=== PATIENT | male | born 1970 | race Caucasian/White ===

== ENCOUNTER → 2019-10-27 | Outpatient (CLI) | payer MEDICARE, MEDICAID ==
[~2019-10-27] MED LIST: 00186-0370-20 IH; ACTOS 15MG TAB15 MG PO; ACTOS30 MG PO; ALBUTEROL0.09 MG/A1 IH; ALBUTEROL0.83 MG/ML IH; ASPIRIN 81M81 MG/TA2 PO; ASPIRIN E.C. 8181 MG PO; BUSPAR10 MG PO; CATAPRES 0.1MG0.1 MG PO; CATAPRES0.2 MG PO; CELEXA10 MG PO; CELEXA40 MG PO; CLINDAMYCIN150 MG PO; COZAAR100 MG PO; CRESTOR40 MG PO; CYMBALTA 60MG60 MG PO; DIOVAN 160MG160 MG PO; DIOVAN 80MG80 MG PO; DOXYCYCLINE 10100 MG PO; FIORICET 325 MG1 TA1 PO; FLOVENT 110MCG7.9 GM IH; FORTAMET1000 MG PO; GABAPENTIN300 M1 PO; GEODON60 MG PO; GLUCOPHAGE500 MG PO; HCTZ 25MG TAB25 MG PO; HUMALOG100 U/ML; HUMALOG100 U/ML SC; HUMALOG100 U/ML SQ; HYDROXYZINE PAM25 MG PO; IMODIUM 2MG CAPS2 MG PO; KLONOPIN 0.5MG0.5 MG PO; LANTUS100 U/ML; LANTUS100 U/ML SQ; LEVAQUIN 5500 MG/TA1 PO; LISINOPRIL10 MG PO; LORTAB 5/500 501 TAB PO; MELOXICAM; MOBIC 7.5MG7.5 MG PO; MOTRIN 200200 MG/TAB PO; NEURONTIN100 MG/CAP PO; NEURONTIN300 MG/CAP PO; NEURONTIN600 MG/TAB PO; NICODERM C21 MG/PATC TOP; NORCO 325 MG-51 TAB PO; NORCO 325 MG-7.1 TAB PO; NORVASC 5MG5 MG/TAB PO; NOVOLOG 100U100 U/M1 SQ; PEPCID 20MG TAB20 MG PO; PERCOCET 325 MG1 TA2 PO; PHENERGAN 25 TA25 MG PO; PHENERGAN25 MG RC; PRAVACHOL 40MG40 MG PO; PREDNISONE10 MG PO; PRINIVIL20 MG PO; PRISTIQ 50 MG T50 MG PO; PROAIR HFA0.09 MG/AC IH; REGLAN 10MG10 MG/TAB PO; RT SPIRIVA18 MCG IH; SAPHRIS2.5 MG SL; SMZ/TMPDS PO; STIOLTO RESPIMAT4 GM IH; SYNTHROID0.05 MG/TA PO; SYNTHROID0.112 MG/T PO; SYNTHROID0.175 MG PO; TIROSINT137 MC1 PO; UNKNOWN ANTIBIOTIC; VENTOLIN0.09 MG IH; VICTOZA6 MG/ML SQ; WELLBUTRIN PO; WELLBUTRIN XL150 MG PO; ZESTRIL 20MG TA20 MG PO; ZIPRASIDONE; ZOFRAN 4MG T4 MG/TAB PO; ZOFRAN ODT4 MG PO; [UNRECOGNIZED DRUG - REMARK]; blood pressure
== END ==
LOC: COL.LAB 08:00 → EDSTATUS 11-01 14:00 → SDCO 11-01 14:00
DX: K40.90 Unilateral inguinal hernia, without obstruction or gangrene, not specified as recurrent (principal); Z20.828 Contact with and (suspected) exposure to other viral communicable diseases

== ENCOUNTER 2019-11-02 09:57 | Inpatient (IN) | payer MEDICARE, MEDICAID ==
[~2019-11-02] VITALS: Ht 182.9 cm; Wt 77.9 kg
[2019-11-02] VITALS (145 sets, daily range): BP systolic 98–109; BP diastolic 59–62; PULSE 102–111; TEMP 97.2–98.2; O2SAT 84–99
[~2019-11-02 09:57] MED LIST changes: -ALBUTEROL0.83 MG/ML IH; -ASPIRIN E.C. 8181 MG PO; -CRESTOR40 MG PO; -NEURONTIN300 MG/CAP PO; -NEURONTIN600 MG/TAB PO; -NORVASC 5MG5 MG/TAB PO; -PRISTIQ 50 MG T50 MG PO; -SAPHRIS2.5 MG SL; -STIOLTO RESPIMAT4 GM IH; -SYNTHROID0.175 MG PO
[2019-11-02 11:01] LABS: COLLECTION METHOD IN
[2019-11-02 11:04] LABS: HEMATOCRIT 47.1 % (42.0-52.0); HEMOGLOBIN 13.3 g/dl (13.5-18.0); MEAN CELL VOLUME 109 fl (80.0-100.0); MEAN CORPUSCULAR HEMOGLOBIN 31 pg (27.0-31.0); MEAN CORPUSCULAR HGB CONC 28 g/dl (33.0-37.0); MEAN PLATELET VOLUME 13.6 fl (7.4-10.4); PLATELET COUNT 220 K/mm3 (130-400); RED BLOOD COUNT 4.32 M/mm3 (4.20-5.60)
[2019-11-02 11:15] LABS: ALANINE AMINOTRANSFERASE 45 U/L (4-49); ALBUMIN 3.8 gm/dL (3.5-5.0); ALKALINE PHOSPHATASE 148 U/L (50-136); ANION GAP 34 mmol/L (7-16); AST,SGOT 56 U/L (15-37); BILIRUBIN,TOTAL 0.5 mg/dL (0.0-1.0); BLOOD UREA NITROGEN 79 mg/dL (9-20); CALCIUM 7.9 mg/dL (8.4-10.2); CREATINE KINASE 650 U/L (55-170); CREATININE, serum 3.78 (0.66-1.25); POTASSIUM 5.3 mmol/L (3.4-5.0); SODIUM 127 mmol/L (137-145); TOTAL PROTEIN 5.7 gm/dL (6.4-8.2)
[2019-11-02 11:16] LABS: ACETONE,SERUM SMALL
[2019-11-02 11:20] LABS: PH 5 (5-8); SQUAMOUS EPITHELIAL 0-2 /hpf; URINE APPEARANCE Clear; URINE BACTERIA None Seen /hpf; URINE BILIRUBIN Negative (NEGATIVE); URINE BLOOD 2+ (NEGATIVE); URINE COLOR Straw; URINE GLUCOSE 3+ (NEGATIVE); URINE KETONE Trace (NEGATIVE); URINE LEUKOCYTE ESTERASE Negative (NEGATIVE); URINE NITRATE Negative (NEGATIVE); URINE PROTEIN(semi-quant) Negative (NEGATIVE); URINE RBC 0-2 /hpf; URINE UROBILINOGEN Negative (NEGATIVE)
[2019-11-02 11:45] LABS: CARBON DIOXIDE 7 mmol/L (22-30); CHLORIDE 86 mmol/L (98-107); SALICYLATE < 1.0 mg/dL
[2019-11-02 11:52] LABS: BAND 1 % (0-10); LYMPHOCYTE 7 % (20.0-51.0); NEUTROPHILS 85 % (42.0-75.2)
[2019-11-02 11:55] LABS: TOXIC GRANULATION PRESENT
[2019-11-02 11:56] LABS: BURR CELLS 1+; POIKILOCYTOSIS 1+
[2019-11-02 11:57] LABS: PLATELET ESTIMATE NORMAL (NORMAL)
[2019-11-02 12:03] LABS: GLUCOSE 1598 mg/dL (74-106)
[2019-11-02 12:07] LABS: C-REACTIVE PROTEIN 5.4 mg/dL (0.0-0.9)
[2019-11-02 13:43] LABS: TRICYCLIC ANTIDEPRESS URINE NEGATIVE
[2019-11-02 13:50] LABS: CALCIUM 7.7 mg/dL (8.4-10.2); CREATININE, serum 3.71 (0.66-1.25); POTASSIUM 4.9 mmol/L (3.4-5.0)
--- NOTE | 2019-11-02 14:15 | NUR ---
Admit to ICU room 2 via stretcher acc by ED staff. Lethargic. Groans with transfer to bed. Connected to continuous court monitor. Glucose above reference range for bedside glucometer. Insulin infusing at 8 units/hr.
--- NOTE | 2019-11-02 16:00 | NUR ---
Insulin at 10 units per Pothuru verbal order
[2019-11-02 16:02] LABS: MAGNESIUM 3.6 mg/dL (1.6-2.3)
[2019-11-02 16:32] LABS: CALCIUM 7.8 mg/dL (8.4-10.2); CREATININE, serum 3.79 (0.66-1.25)
--- NOTE | 2019-11-02 17:00 | NUR ---
Bed alarming. Patient attempting to get out of bed without assistance. Pt's PICC disconnected from IV tubing. Cleansed with chlorhexadine. Reoriented patient to situation. Bed placed in low position. Alarm sensor sensitivity increased. Warm blanket provided.
--- NOTE | 2019-11-02 17:10 | NUR ---
Vancomycin Initial Dosing Pharmacy Note Ordering provider: Salome Montilla MD Indication/duration: EMPIRIC Relevant comorbidities: DM LABS: WBC 25.5, SCr 3.7, CrCl ~25 Recommendation: vancomycin 15 mg/kg Loading dose: 1.5 grams Maintenance dose: 1.25 grams every 24 hours. Trough goal: 15-20 ug/mL. trough 11/04 @ 1630
[2019-11-02 18:48] LABS: CALCIUM 7.3 mg/dL (8.4-10.2); CREATININE, serum 3.4 (0.66-1.25); POTASSIUM 3.8 mmol/L (3.4-5.0)
[2019-11-02 20:09] LABS: CALCIUM 7.6 mg/dL (8.4-10.2); CREATININE, serum 3.42 (0.66-1.25); POTASSIUM 3.8 mmol/L (3.4-5.0)
--- NOTE | 2019-11-02 23:04 | NUR ---
TIMES ON DRIP TITRATION MAY BE OFF DUE TO BG LEVELS BEING RAN BY LAB BECAUSE THEY ARE TOO HIGH TO GET ACCURATE READINGS ON GLUCOMETER ON UNIT. LAB LEVELS DONT RESULT UNTIL ABOUT 30-40 MINUTES AFTER DRAWN.
[2019-11-03] VITALS (35 sets, daily range): BP systolic 106–145; BP diastolic 66–80; PULSE 106–115; TEMP 98.1–99.4; O2SAT 93–97
[2019-11-03 00:16] LABS: CALCIUM 7.7 mg/dL (8.4-10.2); CREATININE, serum 2.82 (0.66-1.25); POTASSIUM 4.1 mmol/L (3.4-5.0)
[2019-11-03 02:30] LABS: CALCIUM 7.6 mg/dL (8.4-10.2); CREATININE, serum 2.66 (0.66-1.25); POTASSIUM 4.1 mmol/L (3.4-5.0)
[2019-11-03 04:19] LABS: HEMATOCRIT 37.4 % (42.0-52.0); HEMOGLOBIN 12.7 g/dl (13.5-18.0); MEAN CORPUSCULAR HEMOGLOBIN 31 pg (27.0-31.0); MEAN CORPUSCULAR HGB CONC 34 g/dl (33.0-37.0); MEAN PLATELET VOLUME 12.6 fl (7.4-10.4); PLATELET COUNT 170 K/mm3 (130-400); RED BLOOD COUNT 4.17 M/mm3 (4.20-5.60)
[2019-11-03 04:31] LABS: MEAN CELL VOLUME 90 fl (80.0-100.0)
[2019-11-03 04:35] LABS: CALCIUM 7.7 mg/dL (8.4-10.2); CREATININE, serum 2.48 (0.66-1.25)
[2019-11-03 05:14] LABS: ANISOCYTOSIS 1+; BAND 16 % (0-10); LYMPHOCYTE 6 % (20.0-51.0); METAMYELOCYTE 1 % (0-0); NEUTROPHILS 71 % (42.0-75.2); PLATELET ESTIMATE NORMAL (NORMAL)
[2019-11-03 05:15] LABS: SPHEROCYTE 1+
[2019-11-03 07:09] LABS: CALCIUM 7.7 mg/dL (8.4-10.2); CREATININE, serum 2.26 (0.66-1.25); POTASSIUM 3.9 mmol/L (3.4-5.0)
--- NOTE | 2019-11-03 08:00 | NUR ---
Shift assessment complete at this time. Unable to review plan of care at bedside with patient r/t altered mental status preventing understanding. Pt demonstrates confusion and repeatedly attempts to leave bed and is unable to vocalize a need to nursing staff when attempting to repeatedly leave bed. Vitals stable at this time. Pt denies pain when prompted. Bed in low position, call light within reach, will continue to monitor.
[2019-11-03 08:26] LABS: CALCIUM 7.6 mg/dL (8.4-10.2); CREATININE, serum 2.22 (0.66-1.25); POTASSIUM 3.7 mmol/L (3.4-5.0)
[2019-11-03 10:38] LABS: CALCIUM 7.6 mg/dL (8.4-10.2); CREATININE, serum 2.09 (0.66-1.25)
--- NOTE | 2019-11-03 10:53 | NUR ---
SW's attended clinical rounds. The patient has AMS and is unable to answer any questions. SW then contacted the patient's mother, Pippa Zavala (ph#[phone]), to discuss discharge plan. The patient lives in a trailer park in [place] with his two children. They are 8 & 9. Pippa reports that the children are staying with her while he is here. Pippa lives in the same trailer park as the patient. Pippa reports that the patient is independent with ADLs and does not have any DME. His PCP is Dr. Hoa Curiel and he receives his medications at [facility]. Pippa reports that the patient normally does not have any difficulties obtaining his meds, but if he does, she helps pay for them. Pippa reports that the patient does not have advanced directives completed. Pippa states that the patient is not and only has his two children. She confirms that she is his next of kin. ANGELITA updated the patient's RN on the above information. SW to continue to follow.
--- NOTE | 2019-11-03 12:00 | NUR ---
Pt resting in bed at this time. More restful after administration of PRN morphine and ativan. Pt has recently been able to verbalize that he is having pelvis/lower abdomen pain. Vitals stable at this time. Bed in low position, call light within reach, will continue to monitor.
[2019-11-03 14:26] LABS: CALCIUM 7.5 mg/dL (8.4-10.2); CREATININE, serum 1.87 (0.66-1.25); POTASSIUM 4.9 mmol/L (3.4-5.0)
[2019-11-03 15:02] LABS: CSF APPEARANCE CLEAR; CSF COLOR COLORLESS; CSF RBC 1 /mm3 (0-0)
[2019-11-03 15:21] LABS: TOTAL PROTEIN,CSF 52 mg/dL (15-45)
[2019-11-03 15:35] LABS: CSF MONONUCLEAR 100 % (70-100); CSF POLYMORPHONUCLEAR 0 % (0-6)
--- NOTE | 2019-11-03 17:15 | NUR ---
Barrie Arreola RN et Dr. Montilla noted a loud noise come from Pt room at 1655 while sitting outside Pt room. Pt was found to have fallen on the floor forwards from the right corner of the bed. Bed was in low position, call light was within reach, yellow fall gown was on Pt, yellow fall socks on Pt, et fall risk band/door label in place. Bed rails were raised x3 prior to fall Bed alarm was noted to be armed prior to fall by Fili Marroquin RN, et Dr. Montilla. However, no alarm had sounded when patient left the bed alarm zone. Pt reported no injuries and denies new pain from the fall. Pt only reports pain from abdomen/pelvis that has been continuous throughout admission prior to fall. 3 cm abrasion noted on middle forehead with no bleeding or ecchymosis. Curriculum Writer notified.
[2019-11-03 18:30] LABS: INR 1.1 (0.8-3.0); PROTHROMBIN TIME 12.7 SECONDS (9.7-12.8)
[2019-11-03 20:34] LABS: BASO % 0.1 % (0.0-2.0); GRAN # 15.5 (1.4-6.5); GRAN % 87.2 % (42.2-75.2); HEMOGLOBIN 12.3 g/dl (13.5-18.0); LYMPH # 0.9 (1.2-3.4); LYMPH % 4.9 % (20.0-51.0); MEAN CELL VOLUME 92 fl (80.0-100.0); MEAN CORPUSCULAR HEMOGLOBIN 31 pg (27.0-31.0); MEAN CORPUSCULAR HGB CONC 33 g/dl (33.0-37.0); MEAN PLATELET VOLUME 12.4 fl (7.4-10.4); MONO # 1.2 (0.1-0.6); PLATELET COUNT 134 K/mm3 (130-400); RED BLOOD COUNT 4.02 M/mm3 (4.20-5.60); REDCELL DISTRIBUTION WIDTH-CV 14.6 % (11.5-14.5)
[2019-11-03 20:49] LABS: ALBUMIN 3.2 gm/dL (3.5-5.0); BILIRUBIN,TOTAL 0.4 mg/dL (0.0-1.0); CALCIUM 7.8 mg/dL (8.4-10.2); CREATININE, serum 1.7 (0.66-1.25); POTASSIUM 4.4 mmol/L (3.4-5.0); TOTAL PROTEIN 5.5 gm/dL (6.4-8.2)
[2019-11-03] MEDS ORDERED: SYNTHROID0.175 MG PO (20:49)
[2019-11-03] MEDS ORDERED: COZAAR100 MG PO (20:50)
[2019-11-03] MEDS ORDERED: CRESTOR40 MG PO (20:51)
[2019-11-03] MEDS ORDERED: STIOLTO RESPIMAT4 GM IH (20:57)
[2019-11-03] MEDS ORDERED: NEURONTIN600 MG/TAB PO (20:59)
[2019-11-03] MEDS ORDERED: ALBUTEROL0.83 MG/ML IH (21:01)
[2019-11-03] MEDS ORDERED: SAPHRIS2.5 MG SL (21:02)
[2019-11-03 21:03] LABS: TROPONIN-I 0.233 ng/mL (0.000-0.035)
[2019-11-03] MEDS ORDERED: PRISTIQ 50 MG T50 MG PO (21:03)
[2019-11-03] MEDS ORDERED: CATAPRES0.2 MG PO (21:03)
[2019-11-03] MEDS ORDERED: BUSPAR10 MG PO (21:04)
[2019-11-03] MEDS ORDERED: VENTOLIN0.09 MG IH (21:05)
[2019-11-03] MEDS ORDERED: ZOFRAN ODT4 MG PO (21:06)
[2019-11-03] MEDS ORDERED: ASPIRIN E.C. 8181 MG PO (21:07)
[2019-11-04] VITALS (13 sets, daily range): BP systolic 132–170; BP diastolic 81–99; PULSE 72–106; TEMP 98–99; O2SAT 95–96
[2019-11-04 05:53] LABS: BASO % 0.2 % (0.0-2.0); EOS % 0.1 % (0-4.0); GRAN # 10.4 (1.4-6.5); GRAN % 85.3 % (42.2-75.2); HEMATOCRIT 38.3 % (42.0-52.0); HEMOGLOBIN 12.6 g/dl (13.5-18.0); LYMPH # 0.9 (1.2-3.4); LYMPH % 7.7 % (20.0-51.0); MEAN CELL VOLUME 93 fl (80.0-100.0); MEAN CORPUSCULAR HEMOGLOBIN 31 pg (27.0-31.0); MEAN CORPUSCULAR HGB CONC 33 g/dl (33.0-37.0); MONO # 0.7 (0.1-0.6); MONO % 6.1 % (1.7-9.3); PLATELET COUNT 119 K/mm3 (130-400)
[2019-11-04 06:03] LABS: CREATININE, serum 1.41 (0.66-1.25); POTASSIUM 4.2 mmol/L (3.4-5.0)
--- NOTE | 2019-11-04 08:20 | NUR ---
Dr Ramsey in to see pt at this time. No new orders. Will continue to follow.
--- NOTE | 2019-11-04 08:59 | NUR ---
Vancomycin Follow-up Pharmacy Note Current regimen: vancomycin 1.25g q24 h Vancomycin trough: not yet obtained. SCr improved from 3.7 to 1.4 Adjustments: increase frequency to vancomycin 1.25g q12h.
--- NOTE | 2019-11-04 10:16 | NUR ---
Dr Blandon in to see pt at this time.
[2019-11-04 18:38] LABS: CALCIUM 8.2 mg/dL (8.4-10.2); CREATININE, serum 1.12 (0.66-1.25); POTASSIUM 3.9 mmol/L (3.4-5.0)
--- NOTE | 2019-11-04 19:04 | NUR ---
Called placed to Dr Gooden with most recent lab results. No answer, message left.
--- NOTE | 2019-11-04 19:15 | NUR ---
Report given to Jadyn RN and care transfered.
--- NOTE | 2019-11-04 20:10 | NUR ---
Patient assessed at this time. Has been drowsy, but woke up when needing to have a BM. Patient has had 3 small, watery BMs since coming onto shift at 1900. Incontinent cares provided. Patient able to answer yes and no questions. Denies having any pain or discomfort. Peripheral INT to left AC flushed. Site is without redness, warmth, swelling, and pain. Double lumen PICC to RUE. Fluids and ABXs running per orders. Dressing to area is CDI. Site is without redness, warmth, swelling, and pain. Denies having SOB and dypsnea. Currently on oxygen at 3 L/min via oxymask. 96%. LS CTA. Respirations even and unlabored. HRR. Telemetry: NS. Capillary refill less than 3 seconds. Non-tenting skin turgor. BSAx4. Abdomen soft and non-tender. Indwelling lynn catheter with cloudy malachi urine via dependent drainage. Catheter care provided. Securement device in place. No edema. Voices no questions, needs, or concerns at this time. Abrasion to forehead, and to BLE. Areas open to air, no drainage. Patient has red scratch to left buttock. Resting in bed with call light within reach. High fall risk precautions in place. Bed alarm is on.
[2019-11-05] VITALS (11 sets, daily range): BP systolic 120–163; BP diastolic 86–90; PULSE 73–92; TEMP 97.7–98.6; O2SAT 96–97
--- NOTE | 2019-11-05 04:15 | NUR ---
Patient has gotten onto bedpan multpile times throughout the night. Has had small amounts of liquid stool each time. Denies upset stomach or nausea. Patient's indwelling lynn catheter currently has blood tinged urine via dependent drainage. Catheter care provided. No blood at insertion site. Denies pain to area. Patient is talking and answering more questions at this time, compared to the beginning of the shift. Patient had asked how long he has been here and why was he at the hospital, as patient was not able to remember when or why he came to hospital. Updated patient. Voices no questions, needs, or concerns at this time. Resting in bed with call light within reach. High fall risk precautions remain in place at this time.
[2019-11-05 05:54] LABS: BASO % 0.1 % (0.0-2.0); EOS % 0.6 % (0-4.0); GRAN # 5.5 (1.4-6.5); GRAN % 75.6 % (42.2-75.2); HEMOGLOBIN 11.2 g/dl (13.5-18.0); LYMPH # 1.3 (1.2-3.4); LYMPH % 17.2 % (20.0-51.0); MEAN CELL VOLUME 94 fl (80.0-100.0); MEAN CORPUSCULAR HEMOGLOBIN 30 pg (27.0-31.0); MEAN CORPUSCULAR HGB CONC 33 g/dl (33.0-37.0); MEAN PLATELET VOLUME 11.7 fl (7.4-10.4); MONO # 0.4 (0.1-0.6); MONO % 6.1 % (1.7-9.3); PLATELET COUNT 86 K/mm3 (130-400); RED BLOOD COUNT 3.68 M/mm3 (4.20-5.60); REDCELL DISTRIBUTION WIDTH-CV 14.5 % (11.5-14.5)
[2019-11-05 05:59] LABS: HEMATOCRIT 34.4 % (42.0-52.0)
[2019-11-05 06:05] LABS: CALCIUM 7.7 mg/dL (8.4-10.2); CREATININE, serum 0.92 (0.66-1.25); POTASSIUM 3.1 mmol/L (3.4-5.0)
--- NOTE | 2019-11-05 07:20 | NUR ---
Report received from Jadyn DUMAS and care resumed.
--- NOTE | 2019-11-05 08:40 | NUR ---
Assessment complete. Pt much more awake today and able to answer orientation questions and carry on small conversations. Has called multiple times for bedpan. Pt having small loose stools. No other concerns at this time, will continue to follow.
--- NOTE | 2019-11-05 08:40 | NUR ---
Dr Ramsey in to see pt at this time. Will plan to do hernia repair once more stable. Will continue to follow.
--- NOTE | 2019-11-05 09:50 | NUR ---
Dr Montilla in to see pt at this time. Updated on improved mental status but still having frequent small loose stools. Will plan to transfer to floor.
--- NOTE | 2019-11-05 10:30 | NUR ---
Elissa with nephrology in to see pt at this time.
--- NOTE | 2019-11-05 11:25 | NUR ---
Attempted to call report to Shanta DUMAS on medical floor. Stated will call back.
--- NOTE | 2019-11-05 12:37 | NUR ---
Attempted to call report to Shanta DUMAS on medical floor. Stated will call back.
--- NOTE | 2019-11-05 13:05 | NUR ---
Report called to Shanta DUMAS on medical floor. Pt taken by bed with chart and belongings to room 309. Call light within reach and bed alarm on.
--- NOTE | 2019-11-05 14:07 | NUR ---
1320: PATIENT ARRIVED TO FROM 309 FROM ICU 2. ARRIVED VIA BED ACCOMPANIED BY ICU NURSE. UPON ARRIVAL A/O X 4. DENIES C/O PAIN OR DISCOMFORT. VALENCIA CATHETER IN PLACE. DOUBLE LUMEN PICC TO RIGHT UPPER ARM WNL. SEE EMAR FOR MEDICATIONS INFUSING ORDERED. 2 EPPISODES OF LOOSE WATERY MUCOUSY STOOL. CALL TO DR Morris ORDERS RECEIVED FOR TO OBTAIN GI PANEL AND CDIFF. SPECIMEN COLLECTED AND SENT TO LAB.
[2019-11-05 15:11] LABS: CLOSTRIDIUM DIFF A/B NEG; CLOSTRIDIUM DIFF A/B INTERP No C.diff present
--- NOTE | 2019-11-05 21:35 | NUR ---
Patient assessed at this time. Alert and oriented x 4, and able to make needs known. Denies having pain and discomfort at this time, except for some nausea. Given PRN Zofran as requested. Peripheral INT to left AC. Double lumen PICC to RUE. Fluids running per orders. Denies having SOB and dyspnea. On room air. LS CTA. Respirations even and unlabored. HRR. Capillary refill less than 3 seconds. Non-tenting skin turgor. BSAx4. Abdomen soft and non-tender. No edema. Indwelling lynn catheter taken out. Able to urinate 75 mls so far since removing catheter around 2100. Abrasion to forehead open to air. High fall risk precautions in place, with bed alarm on. Voices no questions, needs, or concerns at this time. Resting in bed with call light within reach.
[2019-11-06 04:04] VITALS: BP 154/88; PULSE 73; TEMP 98.4
--- NOTE | 2019-11-06 05:48 | NUR ---
Patient has been using urinal and bedside commode this shift with one assist. Has been calling for assistance about half of the time. High fall risk precautions remain in place due to history of falls. Voices no questions, needs, or concerns at this time. Resting in bed with call light within reach.
[2019-11-06 07:52] LABS: BASO % 0.2 % (0.0-2.0); EOS # 0.1 (0.0-0.7); EOS % 1.8 % (0-4.0); GRAN # 3.9 (1.4-6.5); GRAN % 69.6 % (42.2-75.2); HEMOGLOBIN 11.7 g/dl (13.5-18.0); LYMPH # 1.2 (1.2-3.4); LYMPH % 20.9 % (20.0-51.0); MEAN CELL VOLUME 94 fl (80.0-100.0); MEAN CORPUSCULAR HEMOGLOBIN 30 pg (27.0-31.0); MEAN CORPUSCULAR HGB CONC 32 g/dl (33.0-37.0); MEAN PLATELET VOLUME 11.8 fl (7.4-10.4); MONO # 0.4 (0.1-0.6); MONO % 7.3 % (1.7-9.3); PLATELET COUNT 84 K/mm3 (130-400); RED BLOOD COUNT 3.85 M/mm3 (4.20-5.60); REDCELL DISTRIBUTION WIDTH-CV 13.7 % (11.5-14.5)
[2019-11-06 08:02] LABS: CALCIUM 8.1 mg/dL (8.4-10.2); CREATININE, serum 0.84 (0.66-1.25); POTASSIUM 3.9 mmol/L (3.4-5.0)
[2019-11-06 08:12] LABS: HEMATOCRIT 36.1 % (42.0-52.0)
[2019-11-06 08:33] VITALS: BP 159/91; PULSE 75; TEMP 99.8
--- NOTE | 2019-11-06 09:20 | NUR ---
Patient is alert and oriented. denies any pain. blood sugar within range, k at 3.9. abrasion on his forehead. patient resting in bed at this time.
[2019-11-06 11:11] VITALS: BP 142/72; PULSE 73; TEMP 99.3
--- NOTE | 2019-11-06 14:18 | NUR ---
First visit from the tobacco cloth reclaimer. prayed with patient. No other needs right now.
[2019-11-06 16:44] VITALS: BP 139/72; PULSE 73; TEMP 98.8
[2019-11-06 19:28] VITALS: BP 140/73; PULSE 69; TEMP 98.7
--- NOTE | 2019-11-06 19:48 | NUR ---
Patient's mother dropped of Insulin pump for pharmacy to review. Patient is scheduled for a hernia repair tomorrow. report given to Maryam. PITER.
--- NOTE | 2019-11-06 23:16 | NUR ---
Pt assessment completed, charted, alert, oriented, roomair. Meds provided as per MAR, tolerated well. No N/V, tingling, numbness, pain as per pt. PICC line flushed well, dressing intact and dry. Pt complaining of frequent, small bowel movement. Made him setted down on bed, call light on reach. No further needs at this time.
[2019-11-07] VITALS (12 sets, daily range): BP systolic 136–170; BP diastolic 66–98; PULSE 70–91; TEMP 98.5–99.3
--- NOTE | 2019-11-07 05:20 | NUR ---
Pt slept on and off through out the night, helped him to the restroom couple of times. Checked vitals and recorded. No further needs at this time.
[2019-11-07 06:48] LABS: PROTHROMBIN TIME 11.2 SECONDS (9.7-12.8)
[2019-11-07 06:58] LABS: ALBUMIN 3.1 gm/dL (3.5-5.0); CALCIUM 8.8 mg/dL (8.4-10.2); CREATININE, serum 0.84 (0.66-1.25); MAGNESIUM 1.9 mg/dL (1.6-2.3); PHOSPHOROUS 3.5 mg/dL (2.5-4.5); POTASSIUM 3.9 mmol/L (3.4-5.0); TOTAL PROTEIN 5.8 gm/dL (6.4-8.2)
[2019-11-07 07:02] LABS: BASO % 0.2 % (0.0-2.0); EOS # 0.2 (0.0-0.7); EOS % 3.2 % (0-4.0); GRAN # 4.3 (1.4-6.5); GRAN % 71.5 % (42.2-75.2); HEMATOCRIT 39.1 % (42.0-52.0); HEMOGLOBIN 12.8 g/dl (13.5-18.0); LYMPH % 17.4 % (20.0-51.0); MEAN CELL VOLUME 92 fl (80.0-100.0); MEAN CORPUSCULAR HEMOGLOBIN 30 pg (27.0-31.0); MEAN CORPUSCULAR HGB CONC 33 g/dl (33.0-37.0); MEAN PLATELET VOLUME 11.8 fl (7.4-10.4); MONO # 0.5 (0.1-0.6); MONO % 7.5 % (1.7-9.3); PLATELET COUNT 81 K/mm3 (130-400); RED BLOOD COUNT 4.24 M/mm3 (4.20-5.60); REDCELL DISTRIBUTION WIDTH-CV 13.2 % (11.5-14.5)
[2019-11-07 07:12] LABS: BILIRUBIN UNCONJUGATED 0.9 mg/dL (0.0-1.1); BILIRUBIN,DIRECT 0.1 mg/dL (0.0-0.4)
--- NOTE | 2019-11-07 14:38 | NUR ---
SW met with the patient to follow up and to review discharge plan. The patient is now alert and oriented. He states that he is doing better. He confirms that he lives in [place] with his two children. He states that his mother and sister live in the same trailer park as him and that he receives support from them. He states that he plans to return home upon discharge. SW to continue to follow.
[2019-11-07] MEDS ORDERED: COZAAR100 MG PO (15:23)
[2019-11-07] MEDS ORDERED: NORVASC 5MG5 MG/TAB PO (15:24)
[2019-11-07] MEDS ORDERED: NEURONTIN300 MG/CAP PO (15:24)
--- NOTE | 2019-11-07 16:55 | NUR ---
patient right side hernia repair was completed today. there are no bleeding, incision site dressing and surrounding is clean and intact. patient complained of pain at 6/10 3hrs post procedure. Pain mdication administered as needed. Patient confirmed pain at 0/10 at the moment.
[2019-11-07] MEDS ORDERED: PERCOCET 325 MG1 TA2 PO (18:06)
--- NOTE | 2019-11-07 20:03 | NUR ---
returned medication/insulin pump sent to pharmacy back to patient. patient was discharged with new order for pain medication (porcocet). PITER Reyes discharging removing patient's PICC line. no abnormality observed on surgery site.
--- NOTE | 2019-11-07 20:39 | NUR ---
PICC removed to RUE per protocol. Catheter intact, 38 cm. Arm circumferance 29 cm. Tolerated well. Gauze/tegaderm applied. Education provided to patient and given PICC removal handout. Informed to not remove dressing for 24 hours, voiced understanding. Patients ride here, and patient discharged facility at 2034. Voiced no questions, needs, or concerns. [facility] employee assisted patient out via wheelchair.
[2019-11-08 11:14] LABS: HSV 2 DNA PCR QUAL Not Detected (())
== END 2019-11-07 20:35 | disposition home or self-care (01) | DRG 987 ==
LOC: COL.ER 09:57 → EDBD 09:57 → MEDICAL 12:13 → ICU 12:13 → MEDICAL 11-05 13:34
PROVIDERS: Emergency Medicine; Hospitalist; Internal Medicine Nephrology; Nurse Practitioner Primary Care; Physician Assistant; Psychiatry & Neurology Neurology; ADMIT Student in an Organized Health Care Education/Training Program
PROC: 02HV33Z Insertion of Infusion Device into Superior Vena Cava, Percutaneous Approach (ICD-10-PCS; principal; 2019-11-02)
PROC: 0YU50JZ Supplement Right Inguinal Region with Synthetic Substitute, Open Approach (ICD-10-PCS; 2019-11-07)
DX: E10.10 Type 1 diabetes mellitus with ketoacidosis without coma (principal); G93.41 Metabolic encephalopathy; M62.82 Rhabdomyolysis; N17.9 Acute kidney failure, unspecified; K52.9 Noninfective gastroenteritis and colitis, unspecified; I10 Essential (primary) hypertension; F41.9 Anxiety disorder, unspecified; D69.6 Thrombocytopenia, unspecified; Z88.1 Allergy status to other antibiotic agents; Z88.8 Allergy status to other drugs, medicaments and biological substances; K40.90 Unilateral inguinal hernia, without obstruction or gangrene, not specified as recurrent; E78.5 Hyperlipidemia, unspecified; J44.9 Chronic obstructive pulmonary disease, unspecified; H91.90 Unspecified hearing loss, unspecified ear; Z90.49 Acquired absence of other specified parts of digestive tract; F31.9 Bipolar disorder, unspecified; Z53.09 Procedure and treatment not carried out because of other contraindication; F17.210 Nicotine dependence, cigarettes, uncomplicated; E86.0 Dehydration; E03.9 Hypothyroidism, unspecified; E10.42 Type 1 diabetes mellitus with diabetic polyneuropathy
CPT/HCPCS: 99223-AI; 99231-AI; 99232-AI; 99233-AI; 99239; C1751; C1781; J0133; J1644; J1815; J2060; J2250; J2270; J2405; J2543; J2704; J3010; J3370; J3480; J7030; J7050; J7070

== ENCOUNTER 2021-05-01 10:30 | Outpatient (RCR) | payer MEDICARE, MEDICAID ==
[~2021-05-01 10:30] MED LIST changes: +ALBUTEROL0.83 MG/ML IH; +ASPIRIN E.C. 8181 MG PO; +CRESTOR40 MG PO; +NEURONTIN300 MG/CAP PO; +NEURONTIN600 MG/TAB PO; +NORVASC 5MG5 MG/TAB PO; +PRISTIQ 50 MG T50 MG PO; +SAPHRIS2.5 MG SL; +STIOLTO RESPIMAT4 GM IH; +SYNTHROID0.175 MG PO
== END 2021-05-02 | disposition home or self-care (01) ==
LOC: WSPT
DX: M54.2 Cervicalgia (principal); M54.50 Low back pain, unspecified; M25.512 Pain in left shoulder
CPT/HCPCS: G0283-GP

== ENCOUNTER → 2021-05-28 | Outpatient (CLI) | payer MEDICARE, MEDICAID | LOC: COL.RAD 05-20 13:15 | DX: M48.02 Spinal stenosis, cervical region (principal); M48.03 Spinal stenosis, cervicothoracic region; M54.12 Radiculopathy, cervical region ==

== ENCOUNTER 2021-10-18 19:27 | Emergency (ER) | payer MEDICARE, MEDICAID ==
[~2021-10-18] VITALS: Ht 185.4 cm; Wt 68.2 kg
[2021-10-18 19:34] VITALS: TEMP 98.4
[2021-10-18 20:33] LABS: BASO # 0.1 K/mm3 (0.0-0.2); BASO % 1.3 % (0.0-2.0); EOS # 0.2 K/mm3 (0.0-0.7); EOS % 3.8 % (0.0-4.0); GRAN # 2.8 K/mm3 (1.4-6.5); HEMATOCRIT 45.3 % (42.0-52.0); HEMOGLOBIN 15.7 g/dl (13.5-18.0); LYMPH # 1.6 K/mm3 (1.2-3.4); LYMPH % 30.7 % (20.0-51.0); MEAN CELL VOLUME 89 fl (80.0-100.0); MEAN CORPUSCULAR HEMOGLOBIN 31 pg (27-31); MEAN CORPUSCULAR HGB CONC 35 g/dl (33.0-37.0); MEAN PLATELET VOLUME 12.6 fl (7.4-10.4); MONO # 0.6 K/mm3 (0.1-0.6); PLATELET COUNT 164 K/mm3 (130-400); REDCELL DISTRIBUTION WIDTH-CV 12.4 % (11.5-14.5)
[2021-10-18 20:41] LABS: ACETONE,SERUM NEGATIVE
[2021-10-18 20:47] LABS: COLLECTION METHOD CLEAN CATCH
[2021-10-18 20:52] LABS: ALANINE AMINOTRANSFERASE 31 U/L (0-55); ALBUMIN 3.9 gm/dL (3.5-5.0); ALKALINE PHOSPHATASE 112 U/L (40-150); ANION GAP 13 mmol/L (7-16); AST,SGOT 32 U/L (5-34); BILIRUBIN,TOTAL 0.5 mg/dL (0.2-1.2); BLOOD UREA NITROGEN 19 mg/dL (9-21); CARBON DIOXIDE 24 mmol/L (22-29); CHLORIDE 101 mmol/L (98-107); CREATININE, serum 1.18 mg/dL (0.72-1.25); GLUCOSE 209 mg/dL (70-99); LIPASE 47 U/L (8-78); SODIUM 138 mmol/L (136-145)
[2021-10-18 20:53] LABS: MUCOUS Present (NOT PRESENT); PH 5 (5-8); SQUAMOUS EPITHELIAL None Seen /hpf (0-10); URINE APPEARANCE Clear (CLEAR/HAZY); URINE BACTERIA None Seen /hpf (NONE SEEN); URINE BILIRUBIN Negative (NEGATIVE); URINE BLOOD Negative (NEGATIVE); URINE COLOR Yellow (YELLOW); URINE GLUCOSE 3+ (NEGATIVE); URINE KETONE Negative (NEGATIVE); URINE LEUKOCYTE ESTERASE Negative (NEGATIVE); URINE NITRATE Negative (NEGATIVE); URINE PROTEIN(semi-quant) Negative (NEGATIVE); URINE RBC 0-2 /hpf (0-2)
[2021-10-18 21:38] VITALS: BP 121/85; PULSE 73
== END 2021-10-18 21:56 | disposition home or self-care (01) ==
LOC: COL.ER 19:27
PROVIDERS: Physician Assistant
DX: E10.65 Type 1 diabetes mellitus with hyperglycemia (principal)
CPT/HCPCS: J7030

== ENCOUNTER → 2022-04-19 | Outpatient (REF) | payer MEDICARE, MEDICAID ==
[2022-04-19] VITALS (422 sets, daily range): O2SAT 95–98
[~2022-04-19] MED LIST changes: +INSULIN AS100 UNIT/2 SQ; +TAMIFLU 75MG75 MG PO
[2022-04-19 07:39] LABS: HIV 1/2 Antibodies Non-Reactive; HIV-1p24 Antigen Non-Reactive
[2022-04-20 10:21] LABS: HEPATITIS B SURFACE ANTIBODY 28.9 (()); HEPATITIS C VIRUS ANTIBODY Negative (Negative)
== END ==
LOC: COL.LAB 05:31
PROVIDERS: Emergency Medicine
DX: Z01.89 Encounter for other specified special examinations (principal)

== ENCOUNTER 2023-12-16 11:41 | Emergency (ER) | payer MEDICARE, MEDICAID ==
[~2023-12-16] VITALS: Ht 185.4 cm; Wt 70.5 kg
[~2023-12-16 11:41] MED LIST changes: +CELEBREX 1100 MG/CAP PO; +LAMICTAL 25MG T25 MG PO; +OMEGA-3 1000 MG1 CAP PO
[2023-12-16 11:46] VITALS: TEMP 97.5
[2023-12-16] MEDS ORDERED: Ketorolac 30 MG/ML VIAL IM ONE (12:15)
[2023-12-16] MEDS ORDERED: oxyCODONE/Acetaminophen 5-325 MG TAB PO ONE (12:15)
[2023-12-16] MEDS ORDERED: NORCO 325 MG-51 TAB PO (13:30)
[2023-12-16 13:37] VITALS: BP 140/99; PULSE 105
== END 2023-12-16 13:43 | disposition home or self-care (01) ==
LOC: COL.ER 11:41
DX: S20.212A Contusion of left front wall of thorax, initial encounter (principal); E11.9 Type 2 diabetes mellitus without complications; F17.210 Nicotine dependence, cigarettes, uncomplicated; Z79.4 Long term (current) use of insulin; W17.89XA Other fall from one level to another, initial encounter
CPT/HCPCS: J1885